=== PATIENT | female | born 1950 | race Caucasian/White ===

== ENCOUNTER → 2024-02-24 17:45 | Outpatient (REF) | payer MEDICARE, OTHER, SELFPAY | LOC: WDC 17:45 | PROVIDERS: ATTENDING PHYSICIAN Nurse Practitioner Primary Care | DX: Z12.31 Encounter for screening mammogram for malignant neoplasm of breast (principal) | CPT/HCPCS: 77063; 77067 ==

== ENCOUNTER 2024-05-22 09:40 | Emergency (ER) | payer MEDICARE, OTHER, SELFPAY ==
[2024-05-22 09:42] VITALS: BP 190/100
--- NOTE | 2024-05-22 09:59 | ED.GENMED ---
History of Present Illness
General
Chief Complaint: Urinary Symptoms
Source: patient
Time Seen by Provider: 05/22/24 09:45
History of Present Illness
History of Present Illness:
74yoF with a history of hypertension, hyperlipidemia, and kidney stones presenting with her for evaluation of hematuria. Symptoms began yesterday morning. Urine appears dark red. She denies passing any clots. She denies any difficulty
urinating, urinary retention, or dysuria. Patient denies any abdominal pain, flank pain, fevers, vomiting. Of note, patient had a headache and chills about 4 days ago which have resolved. She does not take any blood thinners.
Past History
Past History
ED Past Medical History: HTN and Other (Herniarted disc)
ED Past Surgical History: Appendectomy, Cholecystectomy and Gynecological (Tubel)
Social History
Tobacco: Non-smoker
Alcohol: Occasional
Personal:
Living: with family
Phy Exam
General Physical Exam
General Presentation: well appearing and no apparent distress
General age: appears stated age
General Skin: warm and dry
General Habitus: normal
General Mental: alert
General Hydration: appears well hydrated
Cardiovascular Exam
Cardiovascular Exam: regular rate/rhythm
Pulmonary Exam
Pulmonary Exam: lungs clear, no respiratory distress, no crackles and no wheezing
Gastrointestinal Exam
Gastrointestinal Exam: non tender, soft, non distended and no cva tenderness
Skin Exam
Skin Exam: normal color and warm/dry
Psychiatric Exam
Psychiatric Exam: normal mood/affect
Course
Orders/Labs/Results
Orders:
Orders
05/22/24 09:59
CT Abd/pelvis W Iv Cont Urgent
Comment:
Reason For Exam: Hematuria
05/22/24 10:37
Complete Blood Count/With Diff Urgent
Comprehensive Metabolic Panel Urgent
PTT Urgent
Prothrombin Time Urgent
Urinalysis Reflex To Culture Urgent
Date Specimen was Collected: 05/22/24
Time Specimen was Collected: 10:32
Urine Microscopic Reflex Cult Urgent
Urine Culture Urgent
FERNANDO Source: U
Specimen Description:
Date Specimen was Collected: 05/22/24
Time Specimen was Collected: 10:32
Abnormal Lab Results
05/22/24
10:37
RBC 3.82 L 10^6/uL
(4.20-5.40)
Hgb 11.0 L g/dL
(12.0-16.0)
Hct 33.2 L %
(37.0-47.0)
Absolute Monos (auto) 1.3 H 10^3/uL
(0.1-0.6)
Monocytes % 12.5 H %
(1.7-9.3)
Carbon Dioxide 32 H mmol/L
(22-30)
BUN 29 H mg/dl
(7-17)
Ur Occult Blood Reflex 4+ A
(Negative)
Urine Nitrite (Reflex) Positive A
(Negative)
Leukocyte Esterase Rfl 2+ A
(Negative)
Urine RBC 50-60 A /HPF
(0-2)
Urine WBC (Reflex) 70-80 A /HPF
(0-5)
Urine Bacteria (Reflex) Moderate A
(Negative)
Urine Albumin (Reflex) 3+ A
(Neg - Trace)
05/22/24 10:37
05/22/24 10:37
Vital Signs
Initial and Last Documented VS:
Initial Vital Signs
Temp Pulse Resp BP Pulse Ox
98.2 F 88 16 190/100 98
05/22/24 09:42 05/22/24 09:42 05/22/24 09:42 05/22/24 09:42 05/22/24 09:42
Last Documented Vital Signs
Temp Pulse Resp BP Pulse Ox
98.2 F 89 18 119/54 98
05/22/24 09:42 05/22/24 12:05 05/22/24 12:05 05/22/24 12:05 05/22/24 12:05
MDM/Problems Addressed
Differential Diagnosis Includes:
74yoF here with gross hematuria x 1 day. Otherwise asymptomatic. Not on anticoagulation. She is hypertensive with otherwise normal vital signs. She is well-appearing no acute distress. No abdominal or CVA tenderness present. Differential
diagnosis includes but is not limited to: Cystitis, kidney stone, malignancy
Initial ED plan: Check CBC, CMP, coags, UA, and CT abdomen.
*Critical Care Note
Total Time (30-74mins, 75-104mins- exclusive of procedures): Not Applicable
Update Note
Update Note:
Creatinine is normal. UA is nitrite positive with 70-80 WBC and moderate bacteria. CT shows intrarenal stones as well as a bubble of air within the urinary bladder. Clinical presentation consistent with hemorrhagic cystitis. She was started on a
course of cefdinir. Advised f/u with urology. ED return precautions discussed. She expressed understanding and is agreeable to plan. Patient discharged in stable condition.
ED Attending Note
-
Portions of this chart may have been created with voice recognition software.� Occasional wrong word or��sound alike� substitutions may have occurred due to the inherent limitations of voice recognition software.
Discharge Plan
Departure
Patient Disposition: Home (Routine Discharge)
Date of Disposition: 05/22/24
Time of Disposition: 12:52
Patient with high blood pressure during this ER visit?: No
Discharge Problem:
Acute hemorrhagic cystitis
Instructions: Urinary Tract Infection, Adult (DC)
Prescriptions:
New
cefdinir 300 mg capsule
300 mg PO BID Qty: 14 0RF
No Action
sennosides [senna] 1 TABLET tablet
2 tab PO HS Qty: 1 0RF
polyethylene glycol 3350 17 GRAMS powder in packet
17 grams feeding tube DAILY Qty: 1 0RF
Referrals:
Aziza Moody CRNP [Family Provider] -
Aj Joshi MD [Active] -
Activity Restrictions/Additional Instructions:
Take antibiotics as prescribed.
Please follow-up with urology. Return to the ER with any worsening symptoms, inability to urinate, or fevers.
Interventions
Interventions:
*Risk Screen - Suicide Last Done: 05/22/24 12:08
*General Assessment Last Done: 05/22/24 12:06
*Neglect/Abuse Screening Last Done: 05/22/24 12:08
Discharge Date and Time
Print Language: FRENCH
[2024-05-22 10:30] VITALS: BMI 28.7
[2024-05-22 10:48] LABS: % Basophils 0.5 % (0-2); % Immature Granulocytes 0.3 % (0-0.5); % Lymphocytes 20.9 % (20.5-51.1); % Monocytes 12.5 % (1.7-9.3); % Neutrophils 63.8 % (42.2-75.2); Absolute Basophils 0.1 10^3/uL (0-0.2); Absolute Eosinophils 0.2 10^3/uL (0-0.7); Absolute Lymphocytes 2.1 10^3/uL (1.2-3.4); Absolute Monocytes 1.3 10^3/uL (0.1-0.6); Absolute Neutrophils 6.5 10^3/uL (1.4-6.5); Hematocrit 33.2 % (37.0-47.0); Mean Corp Hgb Conc. 33.1 g/dL (33.0-37.0); Mean Corpuscular Hgb 28.8 pg (27.0-31.0); Mean Corpuscular Volume 86.9 fL (81.0-99.0); Mean Platelet Volume 9.6 fL (7.4-10.4); Nucleated Red Blood Cells % 0 %; Platelet Count 305 10^3/uL (130-400); Red Blood Cell Count 3.82 10^6/uL (4.20-5.40); Red Cell Dist. Width 13.2 % (11.5-14.5); White Blood Cell Count 10.1 10^3/uL (4.8-10.8)
[2024-05-22 10:55] LABS: Urine Albumin 3+ (Neg - Trace); Urine Bilirubin Negative (Negative); Urine Character Slightly Cloudy (Clear); Urine Color Brown; Urine Glucose Negative (Negative); Urine Ketone Negative (Negative); Urine Leukocyte 2+ (Negative); Urine Nitrite Positive (Negative); Urine Occult Blood 4+ (Negative); Urine Urobilinogen Negative (Neg - 1+)
[2024-05-22 11:04] LABS: INR 1.07; PT 13.7 Sec (11.4-14.6)
[2024-05-22 11:05] LABS: ALT (SGPT) 17 U/L (0-35); APTT 30.5 Sec (23.4-35.0); AST (SGOT) 22 U/L (14-36); Albumin 3.7 g/dl (3.5-5.0); Alkaline Phosphatase 93 U/L (38-126); Blood Urea Nitrogen 29 mg/dl (7-17); Calcium 8.8 mg/dl (8.4-10.2); Carbon Dioxide 32 mmol/L (22-30); Chloride 103 mmol/L (98-107); Estimated Creatinine Clearance 61 ml/min; Glucose 98 mg/dl (70-99); Potassium 3.9 mmol/L (3.5-5.1); Sodium 144 mmol/L (135-145); Total Bilirubin 0.4 mg/dl (0.2-1.3); Total Protein 6.6 g/dl (6.3-8.2); eGFR > 60.00
[2024-05-22 12:05] VITALS: BP 119/54
[2024-05-22 12:37] LABS: Urine Squamous Cell 16-20 /LPF (Few)
[2024-05-22 12:38] LABS: Urine Bacteria Moderate (Negative); Urine Red Blood Cell 50-60 /HPF (0-2); Urine White Cell 70-80 /HPF (0-5)
== END 2024-05-22 12:55 | disposition home or self-care (01) ==
LOC: EMR 09:40
PROVIDERS: Physician Assistant; EMERGENCY PHYSICIAN Emergency Medicine; FAMILY PHYSICIAN Nurse Practitioner Primary Care
DX: N30.01 Acute cystitis with hematuria (principal); I10 Essential (primary) hypertension; Z87.442 Personal history of urinary calculi; E78.5 Hyperlipidemia, unspecified
CPT/HCPCS: 99285; 74177; 80053; 81003; 81015; 85025; 85610; 85730; 87077; 87086; 87186; Q9967

== ENCOUNTER → 2024-06-20 10:46 | Outpatient (REF) | payer MEDICARE, OTHER, SELFPAY ==
[2024-06-20 12:12] LABS: Urine Albumin Negative (Neg - Trace); Urine Bilirubin Negative (Negative); Urine Character Clear (Clear); Urine Color Yellow; Urine Glucose Negative (Negative); Urine Ketone Negative (Negative); Urine Leukocyte 2+ (Negative); Urine Nitrite Negative (Negative); Urine Occult Blood 3+ (Negative); Urine Specific Gravity 1.025 (<1.030); Urine Urobilinogen Negative (Neg - 1+)
[2024-06-20 12:31] LABS: Urine Hyaline Cast 0-2 /LPF (0-2); Urine Squamous Cell >30 /LPF (Few)
[2024-06-20 12:33] LABS: Urine Bacteria Moderate (Negative); Urine Mucus Moderate; Urine Red Blood Cell 30-40 /HPF (0-2); Urine White Cell 60-70 /HPF (0-5)
== END ==
LOC: REG 10:46
PROVIDERS: ATTENDING PHYSICIAN Nurse Practitioner Primary Care; FAMILY PHYSICIAN Specialist
DX: R31.29 Other microscopic hematuria (principal)
CPT/HCPCS: 81003; 81015; 87086

== ENCOUNTER → 2024-07-07 10:19 | Outpatient (REF) | payer MEDICARE, OTHER, SELFPAY | LOC: RAD 10:19 | PROVIDERS: ATTENDING PHYSICIAN Specialist; FAMILY PHYSICIAN Nurse Practitioner Primary Care | DX: N20.0 Calculus of kidney (principal) | CPT/HCPCS: 74018 ==

== ENCOUNTER → 2024-08-10 07:42 | Outpatient (REF) | payer MEDICARE, OTHER, SELFPAY | LOC: SDSPAT 07:42 | PROVIDERS: ATTENDING PHYSICIAN Specialist; FAMILY PHYSICIAN Nurse Practitioner Primary Care | DX: N20.0 Calculus of kidney (principal) | CPT/HCPCS: 36415; 93005 ==

== ENCOUNTER 2024-08-17 06:19 | Day surgery (SDC) | payer MEDICARE, OTHER, SELFPAY ==
[2024-08-10 09:37] VITALS: BMI 28.1
[2024-08-17] VITALS (9 sets, daily range): BP systolic 82–124; BP diastolic 44–74; BMI 28.1
[2024-08-22 09:46] LABS: Stone Analysis Mass 12 mg
== END 2024-08-17 12:19 | disposition home or self-care (01) ==
LOC: SDS 06:19
PROVIDERS: ATTENDING PHYSICIAN Specialist
DX: N20.0 Calculus of kidney (principal); N30.90 Cystitis, unspecified without hematuria
CPT/HCPCS: 52356; 74018; 76000; 82365; 87086; C1894; C2617

== ENCOUNTER → 2024-09-01 10:40 | Outpatient (REF) | payer MEDICARE, OTHER, SELFPAY | LOC: REG 10:40 | PROVIDERS: ATTENDING PHYSICIAN Specialist; FAMILY PHYSICIAN Nurse Practitioner Primary Care | DX: N20.0 Calculus of kidney (principal); N30.01 Acute cystitis with hematuria | CPT/HCPCS: 74018 ==

== ENCOUNTER → 2024-12-08 08:57 | Outpatient (REF) | payer MEDICARE, OTHER, SELFPAY | LOC: RAD 08:57 | PROVIDERS: ATTENDING PHYSICIAN Specialist; FAMILY PHYSICIAN Nurse Practitioner Primary Care | DX: N20.0 Calculus of kidney (principal) | CPT/HCPCS: 74018 ==

== ENCOUNTER → 2025-05-18 13:09 | Outpatient (REF) | payer MEDICARE, OTHER, SELFPAY | LOC: HWRAD 13:09 | PROVIDERS: ATTENDING PHYSICIAN Specialist; FAMILY PHYSICIAN Nurse Practitioner Primary Care | DX: N20.0 Calculus of kidney (principal) | CPT/HCPCS: 74176 ==

== ENCOUNTER → 2025-05-31 14:28 | Outpatient (REF) | payer MEDICARE, OTHER, SELFPAY | LOC: RCS 14:28 | PROVIDERS: ATTENDING PHYSICIAN Nurse Practitioner Primary Care | DX: I10 Essential (primary) hypertension (principal) | CPT/HCPCS: 93306 ==

== ENCOUNTER 2025-06-07 17:44 | Inpatient (IN) | payer MEDICARE, OTHER, SELFPAY ==
[2025-06-07 13:00] VITALS: BP 103/69
[2025-06-07 13:09] LABS: Hematocrit 32.6 % (37.0-47.0); Hemoglobin 10.9 g/dL (12.0-16.0); Mean Corp Hgb Conc. 33.4 g/dL (33.0-37.0); Mean Corpuscular Volume 83.6 fL (81.0-99.0); Nucleated Red Blood Cells % 0 %; Platelet Count 426 10^3/uL (130-400); Red Cell Dist. Width 15.1 % (11.5-14.5)
[2025-06-07 13:37] LABS: ALT (SGPT) 44 U/L (0-35); AST (SGOT) 33 U/L (14-36); Albumin 4.1 g/dl (3.5-5.0); Alkaline Phosphatase 105 U/L (38-126); Blood Urea Nitrogen 65 mg/dl (7-17); Calcium 9.2 mg/dl (8.4-10.2); Carbon Dioxide 25 mmol/L (22-30); Chloride 103 mmol/L (98-107); Glucose 114 mg/dl (70-99); Potassium 3.8 mmol/L (3.5-5.1); Sodium 139 mmol/L (135-145); Total Protein 8.1 g/dl (6.3-8.2); eGFR 29.38
[2025-06-07 14:01] VITALS: BMI 25.9
[2025-06-07 14:04] VITALS: BP 106/61
--- NOTE | 2025-06-07 14:33 | ED.GENMED ---
History of Present Illness
<Sharlene Hancock PA-C - Last Filed: 06/07/25 21:06>
General
Chief Complaint: Dizziness
Source: patient
Exam Limitations: none
Time Seen by Provider: 06/07/25 14:05
History of Present Illness
History of Present Illness:
75yoF with a history of hypertension, hyperlipidemia, kidney stones, and GERD presenting for evaluation of malaise. Symptoms initially started about 9 days ago. She had headache for the first 2 days and was sleeping more than usual. Her headache
has since resolved and she has not had a headache in the past week. She also reports intermittent chills, vomiting, and diarrhea. She is having trouble tolerating p.o. intake due to her vomiting. Patient initially thought she had COVID but took a
home COVID test which was negative. She had 1 bowel movement this morning which was more solid. She reports feeling disoriented throughout the week and states it takes her a while to formulate her thoughts. She is also having shuffling gait and
dizziness with standing. Her urine was dark today. She denies any rashes, abdominal pain, dysuria, chest pain, shortness of breath. No recent travel, tick bites, or sick contacts.
Past History
<Sharlene Hancock PA-C - Last Filed: 06/07/25 21:06>
Past History
ED Past Medical History: HTN and Other (Herniarted disc)
ED Past Surgical History: Appendectomy, Cholecystectomy and Gynecological (Tubel)
Social History
Tobacco: Non-smoker
Alcohol: Occasional
Personal:
Living: with family
Phy Exam
<Sharlene Hancock PA-C - Last Filed: 06/07/25 21:06>
General Physical Exam
General Presentation: well appearing and no apparent distress
General Skin: warm and dry
General Habitus: normal
General Mental: alert
ENT Exam
ENT Exam: neck supple and normocephalic
Additional ENT: No meningismus
Eye Exam
Eye Exam: PERRL and conjunctiva normal
Cardiovascular Exam
Cardiovascular Exam: regular rate/rhythm and no edema
Pulmonary Exam
Pulmonary Exam: lungs clear, no respiratory distress, no rales, no crackles, no rhonchi and no wheezing
Gastrointestinal Exam
Gastrointestinal Exam: non tender, soft and non distended
Neurological Exam
Neurological Exam: alert
Oriska Coma Scale
Eye Opening: Spontaneous
Verbal Response: Oriented
Motor Response: Obeys Commands
GCS Total Score: 15
Skin Exam
Skin Exam: normal color and warm/dry
Psychiatric Exam
Psychiatric Exam: normal mood/affect
<Alfredo Tolentino MD - Last Filed: 06/07/25 17:13>
Oriska Coma Scale
GCS Total Score: 15
Course
<Sharlene Hancock PA-C - Last Filed: 06/07/25 21:06>
Orders/Labs/Results
Orders:
Orders
06/07/25 13:03
Complete Blood Count/With Diff Urgent
Comprehensive Metabolic Panel Urgent
06/07/25 14:32
0.9% Sodium Chloride 1000 ml [Nss] 1,000 ml IV BOLUS
06/07/25 14:33
CT Head W/o Iv Contrast Urgent
Comment:
Reason For Exam: dizziness
CR Chest - 2 Views Urgent
Comment:
Reason For Exam: chills
06/07/25 14:36
Electrocardiogram (*1) Urgent
Reason for Study: Vertigo / Dizzy
EKG- Treatment ONCE
06/07/25 14:43
COVID-19 Antigen Urgent
Source: Nasal Swab
Lactate Level [Lactic Acid] Urgent
Blood Culture Q30M
FERNANDO Source: Blood/Venous
Specimen Description:
Influenza A+B Rapid Molecular Urgent
FERNANDO Source: Nasal Swab
Specimen Description:
06/07/25 Dinner
Cholesterol Lowering
At Your Request: Limited Participation
Does patient need a safe tray?: No
Cholesterol Lowering: Sodium, 2 Gram
06/07/25 16:00
Urinalysis Reflex To Culture Urgent
Date Specimen was Collected: 06/07/25
Time Specimen was Collected: 15:03
Urine Microscopic Reflex Cult Urgent
Urine Culture Urgent
FERNANDO Source: U
Specimen Description:
Date Specimen was Collected: 06/07/25
Time Specimen was Collected: 15:03
06/07/25 16:13
Troponin I Urgent
Blood Culture Q30M
FERNANDO Source: Blood/Venous
Specimen Description:
06/07/25 16:25
CefTRIAXone [Rocephin] 2,000 mg IV NOW STA
06/07/25 16:51
CefTRIAXone [Rocephin] 1,000 mg IV NOW STA
06/07/25 17:08
Admit/Transfer Patient As Directed
Co-Sign Provider:
Level of Care: Inpatient admission
Assign to:: Medical/Surgical
Physician / Group: Geo Malik
Diagnosis: sepsis, UTI, EDDIE
Reason for Hospitalization: sepsis, UTI, EDDIE
Expected length of stay greater than two midnights?: Yes
ELOS- Estimated Length of Stay in days: 3
I certify the patient meets the requirements for IP care: Yes
06/07/25 17:09
PRN Pain Medication Management As Directed
May give lesser potent ordered pain med per pt: Yes
preference::
Protocol:: Medication orders for pain may be administered in a
manner that supports deferring to patient preference
when the pt is:
- Requesting an ordered lesser potent pain medication.
Least to most potent pain medications are defined
as: acetaminophen < NSAID < tramadol < opioids
(morphine, oxycodone, hydromorphone).
- Requesting a lesser dose of the same medication IF
ORDERED.
- Requesting a less intrusive route of administration
if both routes are prescribed by the provider (PO <
IV).
06/07/25 17:10
Code Status As Directed
Resuscitation Status: Full Code
06/07/25 18:22
0.9% Sodium Chloride 1000 ml [Nss] 1,000 ml IV 100 mls/hr
Acetaminophen [Tylenol] 650 mg PO Q4HPRN PRN
06/07/25 18:22
Activity As Directed
Activity Level: As Tolerated
Vital Signs As Directed
Frequency: Per unit guidelines
Weight As Directed
Frequency: Once
Comment: on admission
DX Deep Vein Thrombosis Video Routine
06/08/25 00:00
Heparin 5,000 units SC Q8
06/08/25 06:00
Basic Metabolic Panel IN AM
Complete Blood Count/No Diff IN AM
06/08/25 08:00
Pantoprazole [Protonix] 40 mg PO DAILY
06/08/25 18:00
CefTRIAXone [Rocephin] 1,000 mg IV Q24H
Abnormal Lab Results
06/07/25 06/07/25
13:03 16:00
WBC 19.3 H 10^3/uL
(4.8-10.8)
RBC 3.90 L 10^6/uL
(4.20-5.40)
Hgb 10.9 L g/dL
(12.0-16.0)
Hct 32.6 L %
(37.0-47.0)
RDW 15.1 H %
(11.5-14.5)
Plt Count 426 H 10^3/uL
(130-400)
Abs Immat Gran (auto) 0.2 H 10^3/uL
(0-0.05)
Absolute Neuts (auto) 15.2 H 10^3/uL
(1.4-6.5)
Absolute Monos (auto) 2.3 H 10^3/uL
(0.1-0.6)
Immature Gran % 0.8 H %
(0-0.5)
Neutrophils % 78.8 H %
(42.2-75.2)
Lymphocytes % 7.8 L %
(20.5-51.1)
Monocytes % 12.1 H %
(1.7-9.3)
BUN 65 H mg/dl
(7-17)
Creatinine 1.8 H mg/dL
(0.6-1.0)
Glucose 114 H mg/dl
(70-99)
ALT 44 H U/L
(0-35)
Ur Occult Blood Reflex 4+ A
(Negative)
Leukocyte Esterase Rfl 3+ A
(Negative)
Urine RBC 3-6 A /HPF
(0-2)
Urine WBC (Reflex) 80-90 A /HPF
(0-5)
Urine Bacteria (Reflex) Many A
(Negative)
Urine Albumin (Reflex) 2+ A
(Neg - Trace)
06/07/25 13:03
06/07/25 13:03
Vital Signs
Initial and Last Documented VS:
Initial Vital Signs
Temp Pulse Resp BP Pulse Ox
98.5 F 104 16 103/69 99
06/07/25 13:00 06/07/25 13:00 06/07/25 13:00 06/07/25 13:00 06/07/25 13:00
Last Documented Vital Signs
Temp Pulse Resp BP Pulse Ox
98.5 F 96 16 101/66 96
06/07/25 18:40 06/07/25 18:40 06/07/25 18:40 06/07/25 18:40 06/07/25 18:40
<Alfredo Tolentino MD - Last Filed: 06/07/25 17:13>
Orders/Labs/Results
Orders:
Orders
06/07/25 13:03
Complete Blood Count/With Diff Urgent
Comprehensive Metabolic Panel Urgent
06/07/25 14:32
0.9% Sodium Chloride 1000 ml [Nss] 1,000 ml IV BOLUS
06/07/25 14:33
CT Head W/o Iv Contrast Urgent
Comment:
Reason For Exam: dizziness
CR Chest - 2 Views Urgent
Comment:
Reason For Exam: chills
06/07/25 14:36
Electrocardiogram (*1) Urgent
Reason for Study: Vertigo / Dizzy
EKG- Treatment ONCE
06/07/25 14:43
COVID-19 Antigen Urgent
Source: Nasal Swab
Lactate Level [Lactic Acid] Urgent
Blood Culture Q30M
FERNANDO Source: Blood/Venous
Specimen Description:
Influenza A+B Rapid Molecular Urgent
FERNANDO Source: Nasal Swab
Specimen Description:
06/07/25 Dinner
Cholesterol Lowering
At Your Request: Limited Participation
Does patient need a safe tray?: No
Cholesterol Lowering: Sodium, 2 Gram
06/07/25 16:00
Urinalysis Reflex To Culture Urgent
Date Specimen was Collected: 06/07/25
Time Specimen was Collected: 15:03
Urine Microscopic Reflex Cult Urgent
Urine Culture Urgent
FERNANDO Source: U
Specimen Description:
Date Specimen was Collected: 06/07/25
Time Specimen was Collected: 15:03
06/07/25 16:13
Troponin I Urgent
Blood Culture Q30M
FERNANDO Source: Blood/Venous
Specimen Description:
06/07/25 16:25
CefTRIAXone [Rocephin] 2,000 mg IV NOW STA
06/07/25 16:51
CefTRIAXone [Rocephin] 1,000 mg IV NOW STA
06/07/25 17:08
Admit/Transfer Patient As Directed
Co-Sign Provider:
Level of Care: Inpatient admission
Assign to:: Medical/Surgical
Physician / Group: Geo Malik
Diagnosis: sepsis, UTI, EDDIE
Reason for Hospitalization: sepsis, UTI, EDDIE
Expected length of stay greater than two midnights?: Yes
ELOS- Estimated Length of Stay in days: 3
I certify the patient meets the requirements for IP care: Yes
06/07/25 17:09
PRN Pain Medication Management As Directed
May give lesser potent ordered pain med per pt: Yes
preference::
Protocol:: Medication orders for pain may be administered in a
manner that supports deferring to patient preference
when the pt is:
- Requesting an ordered lesser potent pain medication.
Least to most potent pain medications are defined
as: acetaminophen < NSAID < tramadol < opioids
(morphine, oxycodone, hydromorphone).
- Requesting a lesser dose of the same medication IF
ORDERED.
- Requesting a less intrusive route of administration
if both routes are prescribed by the provider (PO <
IV).
06/07/25 17:10
Code Status As Directed
Resuscitation Status: Full Code
06/07/25 18:22
0.9% Sodium Chloride 1000 ml [Nss] 1,000 ml IV 100 mls/hr
Acetaminophen [Tylenol] 650 mg PO Q4HPRN PRN
06/07/25 18:22
Activity As Directed
Activity Level: As Tolerated
Vital Signs As Directed
Frequency: Per unit guidelines
Weight As Directed
Frequency: Once
Comment: on admission
DX Deep Vein Thrombosis Video Routine
06/08/25 00:00
Heparin 5,000 units SC Q8
06/08/25 06:00
Basic Metabolic Panel IN AM
Complete Blood Count/No Diff IN AM
06/08/25 08:00
Pantoprazole [Protonix] 40 mg PO DAILY
06/08/25 18:00
CefTRIAXone [Rocephin] 1,000 mg IV Q24H
Abnormal Lab Results
06/07/25 06/07/25
13:03 16:00
WBC 19.3 H 10^3/uL
(4.8-10.8)
RBC 3.90 L 10^6/uL
(4.20-5.40)
Hgb 10.9 L g/dL
(12.0-16.0)
Hct 32.6 L %
(37.0-47.0)
RDW 15.1 H %
(11.5-14.5)
Plt Count 426 H 10^3/uL
(130-400)
Abs Immat Gran (auto) 0.2 H 10^3/uL
(0-0.05)
Absolute Neuts (auto) 15.2 H 10^3/uL
(1.4-6.5)
Absolute Monos (auto) 2.3 H 10^3/uL
(0.1-0.6)
Immature Gran % 0.8 H %
(0-0.5)
Neutrophils % 78.8 H %
(42.2-75.2)
Lymphocytes % 7.8 L %
(20.5-51.1)
Monocytes % 12.1 H %
(1.7-9.3)
BUN 65 H mg/dl
(7-17)
Creatinine 1.8 H mg/dL
(0.6-1.0)
Glucose 114 H mg/dl
(70-99)
ALT 44 H U/L
(0-35)
Ur Occult Blood Reflex 4+ A
(Negative)
Leukocyte Esterase Rfl 3+ A
(Negative)
Urine RBC 3-6 A /HPF
(0-2)
Urine WBC (Reflex) 80-90 A /HPF
(0-5)
Urine Bacteria (Reflex) Many A
(Negative)
Urine Albumin (Reflex) 2+ A
(Neg - Trace)
06/07/25 13:03
06/07/25 13:03
Vital Signs
Initial and Last Documented VS:
Initial Vital Signs
Temp Pulse Resp BP Pulse Ox
98.5 F 104 16 103/69 99
06/07/25 13:00 06/07/25 13:00 06/07/25 13:00 06/07/25 13:00 06/07/25 13:00
Last Documented Vital Signs
Temp Pulse Resp BP Pulse Ox
98.5 F 96 16 101/66 96
06/07/25 18:40 06/07/25 18:40 06/07/25 18:40 06/07/25 18:40 06/07/25 18:40
<Sharlene Hancock PA-C - Last Filed: 06/07/25 21:06>
MDM/Problems Addressed
Differential Diagnosis Includes:
75yoF here with malaise x 9 days. C/o vomiting, diarrhea, fatigue, and word finding difficulty. No fevers. HR 104 in triage. Remainder of vitals are normal. She is well appearing in no distress. Abdominal exam is benign. Differential diagnosis
includes but is not limited to: Viral illness, gastroenteritis, dehydration, consider CVA
Initial ED plan: Workup initiated in triage. Leukocytosis noted with a white count of 19.3. Creatinine is 1.8, up from baseline of 0.8. Will check lactate, blood cultures, troponin/EKG, UA, COVID/flu swab, chest x-ray, and CT head. IV fluid
bolus.
<Sharlene Hancock PA-C - Last Filed: 06/07/25 21:06>
*Pulse Oximetry
SaO2: 95
Oxygen Mode of Delivery: Room air
Patient hypoxic: no (99%)
*EKG
Interpreted by ED Provider?: Yes
EKG Intrepretation Date: 06/07/25
Heart Rate: 85
Rate: normal
Rhythm: sinus
Mcbee: normal axis
Interval: normal interval
QRS Pattern: normal QRS
Ischemia: no ischemia
*Critical Care Note
Total Time (30-74mins, 75-104mins- exclusive of procedures): Not Applicable
<Sharlene Hancock PA-C - Last Filed: 06/07/25 21:06>
Update Note
Update Note:
Lactate normal. Viral testing negative. UA with 80-90 WBCs and many bacteria suggesting UTI. Chest x-ray clear and CT head negative for acute findings. IV Rocephin ordered and patient admitted for further management.
ED Attending Note
<Sharlene Hancock PA-C - Last Filed: 06/07/25 21:06>
-
Portions of this chart may have been created with voice recognition software.� Occasional wrong word or��sound alike� substitutions may have occurred due to the inherent limitations of voice recognition software.
<Alfredo Tolentino MD - Last Filed: 06/07/25 17:13>
ED Attending Note
Patient seen and examined by attending physician: Yes
I performed the substantive portion of visit, reviewed & personally made and approve the management plan that is documented in note by myself or ALVINA.: Yes
ED Attending Note:
Patient has had 2 weeks of headaches some nausea or vomiting. Did notice recent disequilibrium. Also at times trouble with her words. Some shaking chills at home. No chest pain shortness of breath or cough.
On exam patient is nontoxic in no distress. Speech is normal however she at times has trouble finding the right word. Cranial nerves II through XII intact otherwise. No drift. Upper extremity strength normal. Lower extremity strength normal.
Warm and dry. Perfusing well. Lungs clear and equal. Abdomen benign.
Labs show a significant leukocytosis, prerenal acidemia and UTI. Will be treated for all of these issues. To consider small CVA with symptoms although this is an nonacute issue.
Discharge Plan
Departure
Patient Disposition: Admit
Date of Disposition: 06/07/25
Time of Disposition: 16:47
Presentation/result/management discussed w/ accepting MD/DO: Hospitalist
Discharge Problem:
Acute kidney injury, Urinary tract infection
Interventions
Interventions:
*Risk Screen - Suicide Last Done: 06/07/25 18:43
*General Assessment Last Done: 06/07/25 14:02
*Neglect/Abuse Screening Last Done: 06/07/25 13:02
*ED- Fall Risk Assessment Last Done: 06/07/25 14:02
*ED COVID-19 Vaccine History Last Done: 06/07/25 14:02
*Nursing Disposition Last Done: 06/07/25 18:18
ED- Cardiac Assessment Last Done: 06/07/25 14:04
ED- Neurological Assessment Last Done: 06/07/25 14:04
ED Swallowing Screen Last Done: 06/07/25 16:16
Discharge Date and Time
Discharge Date/Time: 06/07/25 18:19
[2025-06-07] MEDS: NSS 1000 IV ×2 (14:46→18:33)
[2025-06-07 15:00] VITALS: BP 106/61
[2025-06-07 15:23] LABS: COVID-19 Antigen Negative (Negative)
[2025-06-07 16:12] LABS: Urine Character Clear (Clear)
[2025-06-07 16:24] LABS: Urine White Cell 80-90 /HPF (0-5)
--- NOTE | 2025-06-07 16:49 | HPS.HSE ---
Family Physician
-
Family Physician: Aziza Moody
Chief Complaint
-
Generalized weakness
History of Present Illness
75-year-old female with history of hypertension, dyslipidemia, kidney stone, osteoarthritis presented to the hospital for evaluation of generalized weakness and malaise and unsteady gait and dizziness specially when he tried to stand up, story goes
back to of Day when he was in a gathering and few days later started developing an headache and generalized body ache, malaise, poor appetite, GERD symptom followed by couple episodes of vomiting and nonbloody diarrhea, admits she was
not able to eat or drink anything and she had a metallic taste in her mouth, denies any fever or chill or any cough or congestion or any weakness or numbness in extremities, and at any time last couple days trying to get up she was very unsteady on
her feet and feels dizzy. Denies any antibiotic intake.-No more diarrhea since yesterday.
But overall still not able to eat or drink much. Her headaches are involved. She tested negative for COVID according to the patient.
Admit the urine is foul-smelling and dark but no dysuria or urgency.
Looks dry and dehydrated, workup in the ER concerning for dehydration, low normal blood pressure and acute kidney injury and UTI.
Complaining of chronic pain in numbness in the both leg below knee specially at night and charley horses.
Medical History
Past Medical History
Past Medical History: Reports Other
Additional Past Medical History:
Past medical history:
Hypertension
Lipidemia
Kidney stone
Osteoarthritis
GERD
COVID
Surgical history:
Tubal ligation
Cholecystectomy
Cataract surgery in the right eye
Hemorrhoid banding
Cystoscopy and ureteric stent and stone removal.
Social history: Lives alone, recently retired, denies smoking and occasionally drinks alcohol and she is independent and no drug use.
Family history reviewed and noncontributory
Past Surgical History: Reports Other
Social History
Unable to obtain full social history at this time due to: Other
Family History
Family History: Other
Allergies / Home Medications
Allergies reflects when Allergies were last updated in [facility].
Home Medications with original date entered in [facility]
Allergy/Medication List:
Allergies
Allergy/AdvReac Type Severity Reaction Status Date / Time
No Known Allergies Allergy Verified 08/11/24 11:24
Home Medications
atorvastatin 20 mg tablet 20 mg PO DAILY 08/11/24
olmesartan 20 mg-hydrochlorothiazide 12.5 mg tablet 1 tab PO DAILY 08/11/24
omeprazole 20 mg tablet,delayed release 20 mg PO DAILY 08/11/24
Review of Systems
-
A 12 point ROS was completed and negative except as noted: Yes
Physical Exam
Vital Signs
Vital Signs
Temp Pulse Resp BP Pulse Ox
98.5 F 84 18 106/61 98
06/07/25 13:00 06/07/25 15:00 06/07/25 15:00 06/07/25 15:00 06/07/25 15:00
Physical exam:
General: Awake, alert and oriented x3, not in distress and holds appropriate conversation.
HEENT: No active discharge, ecchymosis or bruising, dry lips, tongue and mucous membrane.
Eyes: No discharge or red conjunctiva, no nystagmus, pupils are reactive and equal
Neck:Supple, no JVD no bruit no goiter.
Respiratory: Normal AP contour and diameter, normal chest wall movement, normal respiratory effort, no respiratory distress,
Lungs: Good air entry bilaterally, no wheezing or rhonchi, no rales or crackles
Heart: S1, S2 regular, normal rate, no added sound.
Gastrointestinal: Positive bowel sounds, soft, nontender, no guarding or rigidity or organomegaly
Musculoskeletal: , no chest wall abnormality or tenderness. All joints and extremities have good range of motion, no muscle tenderness or any joint swelling or tenderness.
Extremities: No pitting edema, good peripheral pulses, good range of motion
Skin: Warm and dry, no ulceration, normal color.
Neurological: Awake, alert and oriented x3, good muscle tone, cranial nerves II through XII grossly intact, moves extremities freely, speech clear and comprehensive, good muscle tone, normal sensory and motor function
Psychiatric: Normal mood, normal thought and judgment, normal affect,
Physical Exam
General: Other
Laboratory Results
-
06/07/25 13:03
06/07/25 13:03
Laboratory Results
Lactic Acid 1.1 mmol/L (0.7-2.0) 06/07/25 14:43
Total Bilirubin 0.7 mg/dl (0.2-1.3) 06/07/25 13:03
AST 33 U/L (14-36) 06/07/25 13:03
ALT 44 U/L (0-35) H 06/07/25 13:03
Alkaline Phosphatase 105 U/L (38-126) 06/07/25 13:03
Troponin I Cancelled 06/07/25 16:[address]:No acute intracranial abnormalities.
Findings compatible with diffuse cortical atrophy with minor nonspecific white matter changes as described above.
Chest x-ray: Reviewed by me and pending official report, please refer to the official report once available, no acute abnormality.
EKG: Showed normal sinus rhythm rate around 88, UT 152, QT 362 otherwise no acute abnormality
Data Reviewed
-
CT Scan: Image Personally Visualized and interpreted and Discussed with Patient
Medical Tests (Nuc Med, Echo, EKG etc): Image Personally Visualized and interpreted and Discussed with Patient
Lab Data: Labs Reviewed by me and Discussed with Patient
Old Records: Reviewed
Impression/Plan
-
IMPRESSION:
74-year-old female presented with multi complaint including generalized weakness, malaise, unsteady feet, dizziness when she is to describe with nausea and diarrhea for the last few days, concerning for dehydration, gastroenteritis and UTI as well
as workup show acute kidney injury.
Acute sepsis:
- Likely secondary to urinary tract infection Eliquis need to be considered
- Criteria is leukocytosis white cell count more than 18, acute kidney injury, and encephalopathy.
- IV fluid
-Monitor vital sign.
- Blood culture collected.
Generalized weakness: Likely metabolic encephalopathy related to dehydration, UTI, acute kidney injury.
- IV fluid
- Hold blood pressure medication which she is on ARB and HCTZ as pressure in the low normal side
- Recheck lab
- Avoid nephrotoxin
- If not improving consider ultrasound of kidney and nephrology,
Acute kidney injury:
- Likely prerenal because of the dehydration poor oral intake and diarrhea and vomiting.
- IV fluid
- Recheck lab
- Avoid nephrotoxin
Urinary tract infection: Symptomatic
- In the past grew E. coli pansensitive
- Started on Rocephin radha continue can be discussed daily pending culture and sensitivity
GERD:
- Continue PPI
Hypertension:
- Pressure on the soft side we will hold ARB and HCTZ for now with close monitoring of the blood
Chronic bilateral leg pain and numbness:
- Concerning for peripheral neuropathy while other causes need to be considered: Doubt a radiculopathy.
- Recommended to take some magnesium supplements and outpatient like magnesium glycinate will need to address with the primary care physician further workup for peripheral neuropathy or restless leg syndrome
All discussed with the patient in detail expressed
Question answered
CODE STATUS full code
DVT prophylaxis: Heparin subcu
[2025-06-07 16:50] LABS: Troponin I < 0.012 ng/ml
[2025-06-07] MEDS: ROCEPHIN 1000 MG IV (16:55)
--- NOTE | 2025-06-07 18:06 | CM ---
CM reviewed chart and met with pt bedside in ED. Pt lives alone, 2 story [facility], 1STE, first floor half bath, second floor Bedroom and full bath.
Independent in ADLs, personal care and ambulation at baseline, no DME.
Confirms prescription coverage.
No hx VN or SNF.
PCP: Aziza Moody
Pharmacy: [facility]
CM will continue to follow for any discharge planning needs.
--- NOTE | 2025-06-07 18:30 | TRANSFER ---
pt arrived from ED via stretcher accompanied by staff. pt ambulated from stretcher to bed with standby assist. VSS, pt AAOx3. call wilson within reach, POC ongoing.
[2025-06-07 18:40] VITALS: BP 101/66
[2025-06-07 18:42] VITALS: BMI 25.9
[2025-06-07] MEDS: HEPARIN 5000 UNITS SC (23:08)
[2025-06-07 23:28] VITALS: BP 107/56
[2025-06-08] VITALS (10 sets, daily range): BP systolic 94–165; BP diastolic 51–121; PULSE 88; O2SAT 94
[2025-06-08] MEDS: OFIRMEV 100 IV (02:32)
[2025-06-08] MEDS: NSS 1000 IV ×2 (06:11→14:01)
[2025-06-08] MEDS: TYLENOL 650 MG PO ×2 (06:20→17:47)
[2025-06-08] MEDS: HEPARIN 5000 UNITS SC ×3 (08:36→23:14)
[2025-06-08] MEDS: PROTONIX 40 MG PO (08:36)
[2025-06-08 09:17] LABS: Blood Urea Nitrogen 41 mg/dl (7-17); Calcium 8.2 mg/dl (8.4-10.2); Carbon Dioxide 24 mmol/L (22-30); Chloride 108 mmol/L (98-107); Estimated Creatinine Clearance 35 ml/min; Glucose 113 mg/dl (70-99); Potassium 3.1 mmol/L (3.5-5.1); Sodium 138 mmol/L (135-145); eGFR 47.80
[2025-06-08 09:26] LABS: Hematocrit 25.6 % (37.0-47.0); Hemoglobin 8.6 g/dL (12.0-16.0); Mean Corp Hgb Conc. 33.6 g/dL (33.0-37.0); Mean Corpuscular Volume 84.2 fL (81.0-99.0); Platelet Count 329 10^3/uL (130-400); Red Cell Dist. Width 15.1 % (11.5-14.5)
[2025-06-08] MEDS: KCL 270 MEQ IV (10:07)
--- NOTE | 2025-06-08 12:35 | W.PN.HOSP.TC ---
Today's Communication/Plan
-
Check renal bladder ultrasound
Check MRI of the brain
Continue with broad-spectrum antibiotic
Check TSH/cortisol
PT evaluation
Follow-up on the blood culture
Assessment / Plan
Assessment / Plan
74-year-old female presented with multi complaint including generalized weakness, malaise, unsteady feet, dizziness when she is to describe with nausea and diarrhea for the last few days, concerning for dehydration, gastroenteritis and UTI as well
as workup show acute kidney injury.
Sepsis-poa
- Likely secondary to urinary tract infection
- Criteria is leukocytosis white cell count more than 18, acute kidney injury, and encephalopathy-poa
- IV fluid
- Monitor vital sign.
- Blood culture in lab. Urine culture with gram-negative bacilli. Continue with broad-spectrum antibiotic with ceftriaxone.
- Patient with history of renal stone and check renal bladder ultrasound.
Toxic metabolic encephalopathy related to dehydration, UTI, acute kidney injury and rule out CVA
- IV fluid
- Hold blood pressure medication which she is on ARB and HCTZ as pressure in the low normal side
- Recheck lab
- Avoid nephrotoxin
- CT head ordered. Check MRI of the brain.
Acute kidney injury:
- Likely prerenal because of the dehydration poor oral intake and diarrhea and vomiting and urinary tract infection in the setting of taking olmesartan and hydrochlorothiazide
- IV fluid
- Creatinine down trended to 1.2. Check renal bladder ultrasound. Treat infection as above.
- Avoid nephrotoxin
GERD:
- Continue PPI
Hypertension:
- Pressure on the soft side we will hold ARB and HCTZ for now with close monitoring of the blood
CODE STATUS full code
DVT prophylaxis: Heparin subcu
Anticipated Discharge: > 48 hours
Subjective/Interval History
-
Date of Service: June 08, 2025
States remembers bits and pieces of events from yesterday
ReMembers watching football came up on the TV
States she feels like she is rinsing pieces of information from yesterday
Denies any nausea or vomiting or chest pain or shortness of breath or palpitation
Neuro she was endorsed on hospital. Knew it was May. Unable to recall date.
Objective Data
-
Labs:
Laboratory Results
06/08/25
08:38
WBC 20.8 H
Hgb 8.6 L D
Hct 25.6 L
Plt Count 329 D
Sodium 138
Potassium 3.1 L
Chloride 108 H
Carbon Dioxide 24
BUN 41 H
Creatinine 1.2 H
Glucose 113 H
Calcium 8.2 L
Vital Signs:
Vital Signs
Temp Pulse Resp BP Pulse Ox
100.3 F 108 18 104/61 92
06/08/25 07:30 06/08/25 07:30 06/08/25 07:30 06/08/25 07:30 06/08/25 10:59
I&O
06/07/25 06/08/25 06/09/25
06:59 06:59 06:59
Intake Total 480 / 480
Output Total 510 / 510
Balance -30 / -30
Physical Exam
-
General: Well Developed and No Apparent Distress
HEENT: Normocephalic, Atraumatic and Moist Mucous Membranes
Respiratory: Clear to Auscultation
Cardiac: Regular Rhythm and S1/S2; Negative Murmur, Rub or Gallop
GI: Soft, Nontender, Nondistended and Normal Bowel Sounds; Negative Organomegaly
Rectal: Deferred by Provider
Musculoskeletal: No Clubbing, No Cyanosis and No Edema
Skin: Warm; Negative Rash
Neuro: Awake, Alert, Oriented, AO x 3, No Motor Deficits and Nonfocal/Grossly Intact; Negative Tremors, Sedated, Slurred Speech or Facial Droop
Psych: Calm and Confused
Data Reviewed
-
Total Time Spent with Patient (in minutes): 58
[2025-06-08 13:12] LABS: Magnesium 1.9 mg/dl (1.6-2.3)
--- NOTE | 2025-06-08 14:44 | PN.CDI ---
CDI
- -
CDI:
Physician Documentation Request
Admit Date: 06/07/25 17:44
Dear Doctor Ace,
Please review the following and provide your response in the progress notes.
Clinical Indicators:
PN, 06/08
#Sepsis-poa
#...- Likely secondary to urinary tract infection
#...- Criteria is leukocytosis white cell count more than 18,
#...acute kidney injury, and encephalopathy-poa
Please clarify which of the following most accurately describes the status of the patient's infection:
Severe Sepsis with associated organ dysfunction(please documentation)
Sepsis only
Other (please specify
Recognized standard criteria for this condition and other associated definitions:
�Sepsis
-Systemic manifestations of infection, with 2 or more SIRS criteria which include:
-Fever > 100.9��F or hypothermia < 96.8��F
-Leukocytosis WBC > 12,000 or leukopenia, WBC < 4,000, or > 10% bands
-Tachycardia- > 90 beats/minute
-Tachypnea- RR > 20 breaths/minute or PaCO2 < 32mmHg
Source: Merck Manual 2013
-Documentation should include the known or suspected organism, and the underlying infection, such as UTI or pneumonia
�Severe Sepsis
-Sepsis with associated acute organ dysfunction, such as renal or respiratory failure
-Documentation should indicate the association between the sepsis and the organ dysfunction
Use of terms such as suspected, likely, concern for, or probable (associated with a specific diagnosis that is being evaluated, monitored, or treated as if it exists) are acceptable and can be coded in the inpatient setting, when documented at the
time of discharge.
Thank you,
Lindsey Price RN BSN CCDS
CDI Specialist
Please contact via tiger text
Please use your independent medical judgment in providing your response.
[2025-06-08] MEDS: STERILE WATER FOR INJECTION 10 ML IV (17:01)
[2025-06-08] MEDS: ROCEPHIN 1000 MG IV (17:01)
[2025-06-09 03:08] VITALS: BP 98/57
[2025-06-09] MEDS: NSS 1000 IV ×2 (03:34→10:35)
[2025-06-09 07:25] VITALS: BP 108/63
[2025-06-09] MEDS: LIPITOR 20 MG PO (08:22)
[2025-06-09] MEDS: PROTONIX 40 MG PO (08:22)
[2025-06-09] MEDS: HEPARIN 5000 UNITS SC ×2 (08:22→23:08)
[2025-06-09 09:35] LABS: Hematocrit 24.0 % (37.0-47.0); Hemoglobin 7.8 g/dL (12.0-16.0); Mean Corp Hgb Conc. 32.5 g/dL (33.0-37.0); Mean Corpuscular Volume 87.6 fL (81.0-99.0); Nucleated Red Blood Cells % 0 %; Platelet Count 321 10^3/uL (130-400); Red Cell Dist. Width 15.7 % (11.5-14.5)
[2025-06-09 09:54] LABS: Blood Urea Nitrogen 29 mg/dl (7-17); Calcium 8.1 mg/dl (8.4-10.2); Carbon Dioxide 21 mmol/L (22-30); Chloride 111 mmol/L (98-107); Estimated Creatinine Clearance 41 ml/min; Glucose 58 mg/dl (70-99); Potassium 3.7 mmol/L (3.5-5.1); Sodium 140 mmol/L (135-145); eGFR 59.49
[2025-06-09 10:22] LABS: Cortisol, Random 22.6 ug/dl
[2025-06-09] MEDS: TYLENOL 650 MG PO ×2 (10:35→20:21)
[2025-06-09 11:35] VITALS: BP 112/63
[2025-06-09 11:40] LABS: Glycohemoglobin (HgbA1c) 6.1 % (4.0-5.6)
--- NOTE | 2025-06-09 12:08 | W.PN.HOSP.TC ---
Today's Communication/Plan
-
Encourage increase p.o. intake
Monitor off fluids
Continue with IV antibiotics
Monitor blood pressure
PT eval
Assessment / Plan
Assessment / Plan
74-year-old female presented with multi complaint including generalized weakness, malaise, unsteady feet, dizziness when she is to describe with nausea and diarrhea for the last few days, concerning for dehydration, gastroenteritis and UTI as well
as workup show acute kidney injury.
Severe Sepsis-poa
- Likely secondary to urinary tract infection E. coli
- Criteria is leukocytosis white cell count more than 18, acute kidney injury, and encephalopathy-poa
- Monitor off IV fluids.
- Monitor vital sign.
- Blood culture in lab remains negative so far. Urine culture susceptibility result noted. Transition to p.o. antibiotic on discharge.
- Patient with history of renal stone and renal bladder ultrasound with renal stones noted.
Toxic metabolic encephalopathy related to dehydration, UTI, acute kidney injury versus unclear if underlying cognitive impairment
- IV fluid
- Hold blood pressure medication which she is on ARB and HCTZ as pressure in the low normal colton
- Avoid nephrotoxin
- CT head age-related changes noted. Unable to tolerate MRI of the brain and stated she will get it as outpatient.
Acute kidney injury:
- Likely prerenal because of the dehydration poor oral intake and diarrhea and vomiting and urinary tract infection in the setting of taking olmesartan and hydrochlorothiazide
- IV fluid
- Creatinine down trended to 1.2. Check renal bladder ultrasound. Treat infection as above.
- Avoid nephrotoxin
GERD:
- Continue PPI
Primary hypertension
- Pressure on the soft side we will hold ARB and HCTZ for now with close monitoring of the blood
- Midodrine as needed ordered. Blood pressure at 112/63.
History of renal stones
- Continue with prophylactic potassium citrate. Follows with urology as outpatient.
CODE STATUS full code
DVT prophylaxis: Heparin subcu
PT recs home PT versus skilled rehab
Anticipated Discharge: 24 - 48 hours
Subjective/Interval History
-
Date of Service: June 09, 2025
Patient states her mentation has significantly improved
States she was able to get a good night sleep
States of frequent urination while being on IV fluids
Objective Data
-
Labs:
Laboratory Results
06/09/25
06:26
WBC 21.1 H
Hgb 7.8 L
Hct 24.0 L
Plt Count 321
Sodium 140
Potassium 3.7
Chloride 111 H
Carbon Dioxide 21 L
BUN 29 H
Creatinine 1.0
Glucose 58 L
Calcium 8.1 L
Vital Signs:
Vital Signs
Temp Pulse Resp BP Pulse Ox
98.4 F 88 18 112/63 98
06/09/25 11:35 06/09/25 11:35 06/09/25 11:35 06/09/25 11:35 06/09/25 11:35
I&O
06/08/25 06/09/25 06/10/25
06:59 06:59 06:59
Intake Total 480 / 480 720 / 720
Output Total 510 / 510 350 / 350
Balance -30 / -30 370 / 370
Data Reviewed
-
Total Time Spent with Patient (in minutes): 55
[2025-06-09] MEDS: OCUVITE SOFTGEL 2 CAP PO (12:51)
[2025-06-09 15:29] VITALS: BP 107/76
[2025-06-09] MEDS: STERILE WATER FOR INJECTION 10 ML IV (17:01)
[2025-06-09] MEDS: ROCEPHIN 1000 MG IV (17:01)
[2025-06-09] MEDS: HEPARIN SC (17:02)
[2025-06-09 19:56] VITALS: BP 120/65
[2025-06-09] MEDS: UROCIT-K 15 MEQ PO (20:21)
[2025-06-09 23:12] VITALS: BP 116/62
[2025-06-10] VITALS (8 sets, daily range): BP systolic 102–160; BP diastolic 58–75
[2025-06-10] MEDS: TYLENOL 650 MG PO ×2 (00:52→20:48)
[2025-06-10 01:05] LABS: Glucose - Point of Care 94 mg/dl (70-99)
[2025-06-10] MEDS: PROTONIX 40 MG PO (08:06)
[2025-06-10] MEDS: HEPARIN 5000 UNITS SC ×2 (08:06→23:00)
[2025-06-10] MEDS: UROCIT-K 15 MEQ PO ×2 (08:06→20:48)
[2025-06-10] MEDS: OCUVITE SOFTGEL 2 CAP PO (08:06)
[2025-06-10] MEDS: LIPITOR 20 MG PO (08:06)
[2025-06-10 08:47] LABS: Hematocrit 25.7 % (37.0-47.0); Hemoglobin 8.5 g/dL (12.0-16.0); Mean Corp Hgb Conc. 33.1 g/dL (33.0-37.0); Mean Corpuscular Volume 83.4 fL (81.0-99.0); Platelet Count 312 10^3/uL (130-400); Red Cell Dist. Width 15.6 % (11.5-14.5)
[2025-06-10 08:58] LABS: Blood Urea Nitrogen 21 mg/dl (7-17); Calcium 8.3 mg/dl (8.4-10.2); Carbon Dioxide 22 mmol/L (22-30); Chloride 110 mmol/L (98-107); Estimated Creatinine Clearance 41 ml/min; Glucose 99 mg/dl (70-99); Potassium 3.6 mmol/L (3.5-5.1); Sodium 140 mmol/L (135-145); eGFR 59.49
[2025-06-10 09:53] LABS: Nucleated Red Blood Cells % 0 %
[2025-06-10] MEDS: CIPRO 400 MG 200 IV ×2 (10:05→23:01)
--- NOTE | 2025-06-10 11:30 | W.PN.HOSP.TC ---
Today's Communication/Plan
-
Change antibiotics to ciprofloxacin
DC MRI patient refusing
Continue with PT eval
Monitor temperature curve
Trend WBC
Assessment / Plan
Assessment / Plan
74-year-old female presented with multi complaint including generalized weakness, malaise, unsteady feet, dizziness when she is to describe with nausea and diarrhea for the last few days, concerning for dehydration, gastroenteritis and UTI as well
as workup show acute kidney injury.
Severe Sepsis-poa
- Likely secondary to urinary tract infection E. coli
- Criteria is leukocytosis white cell count more than 18, acute kidney injury, and encephalopathy-poa
- Status post aggressive IV fluids. Tolerating p.o. intake.
- Monitor vital sign.
- Blood culture has remained negative. Urine culture susceptibility result noted.
- Patient with history of renal stone and renal bladder ultrasound with renal stones noted. CT scan was negative for any obstructive renal stone.
- Mild bump in WBC noted. Change antibiotics to ciprofloxacin. If no improvement will need ID input.
Toxic metabolic encephalopathy related to dehydration, UTI, acute kidney injury versus unclear if underlying cognitive impairment
- Hold blood pressure medication which she is on ARB and HCTZ as pressure
- Avoid nephrotoxin
- CT head age-related changes noted. Unable to tolerate MRI of the brain and stated she will get it as outpatient.
- States of a anxious due to undergoing MRI and would like to get it as outpatient. Does not want to take anxiolytic before the MRI.
Acute kidney injury:
- Likely prerenal because of the dehydration poor oral intake and diarrhea and vomiting and urinary tract infection in the setting of taking olmesartan and hydrochlorothiazide
- Monitor off fluids. Encouraged to increase oral intake.
- Creatinine down trended to 1. Renal bladder ultrasound negative for hydronephrosis.
- Avoid nephrotoxin
GERD:
- Continue PPI
Primary hypertension
- Pressure on the soft side we will hold ARB and HCTZ for now with close monitoring of the blood
- Midodrine as needed ordered. Blood pressure at 107/62
History of renal stones
- Continue with prophylactic potassium citrate. Follows with urology as outpatient.
Left ovarian cyst
Outpatient [facility] follow-up
CODE STATUS full code
DVT prophylaxis: Heparin subcu
PT recs home PT versus skilled rehab
Anticipated Discharge: > 48 hours
Subjective/Interval History
-
Date of Service: June 10, 2025
states of feeling weak
states she was symptomatic from elevated temperature overnight
States her memory is foggy at times
States of a anxious due to undergoing MRI and would like to get it as outpatient. Does not want to take anxiolytic before the MRI.
Objective Data
-
Labs:
Laboratory Results
06/10/25
07:29
WBC 25.4 H
Hgb 8.5 L
Hct 25.7 L
Plt Count 312
Sodium 140
Potassium 3.6
Chloride 110 H
Carbon Dioxide 22
BUN 21 H
Creatinine 1.0
Glucose 99
Calcium 8.3 L
Vital Signs:
Vital Signs
Temp Pulse Resp BP Pulse Ox
98.3 F 97 18 107/62 94
06/10/25 07:10 06/10/25 07:10 06/10/25 07:10 06/10/25 07:10 06/10/25 08:15
I&O
06/09/25 06/10/25 06/11/25
06:59 06:59 06:59
Intake Total 720 / 720 480 / 480
Output Total 350 / 350 800 / 800
Balance 370 / 370 -320 / -320
Physical Exam
-
General: Well Developed and No Apparent Distress
HEENT: Normocephalic, Atraumatic and Moist Mucous Membranes
Respiratory: Clear to Auscultation
Cardiac: Regular Rhythm and S1/S2; Negative Murmur, Rub or Gallop
GI: Soft, Nontender, Nondistended and Normal Bowel Sounds; Negative Organomegaly
Rectal: Deferred by Provider
Musculoskeletal: No Clubbing, No Cyanosis and No Edema
Skin: Warm; Negative Rash
Neuro: Awake, Alert, Oriented, AO x 3, No Motor Deficits and Nonfocal/Grossly Intact; Negative Tremors, Sedated, Slurred Speech or Facial Droop
Psych: Calm and Confused
Data Reviewed
-
Total Time Spent with Patient (in minutes): 55
[2025-06-10] MEDS: HEPARIN SC (15:34)
[2025-06-11 03:50] VITALS: BP 108/65
[2025-06-11 07:00] VITALS: BP 120/71
[2025-06-11 08:10] LABS: Hematocrit 25.6 % (37.0-47.0); Hemoglobin 8.5 g/dL (12.0-16.0); Mean Corp Hgb Conc. 33.2 g/dL (33.0-37.0); Mean Corpuscular Volume 82.3 fL (81.0-99.0); Nucleated Red Blood Cells % 0 %; Platelet Count 286 10^3/uL (130-400); Red Cell Dist. Width 15.9 % (11.5-14.5)
[2025-06-11 08:37] LABS: Blood Urea Nitrogen 19 mg/dl (7-17); Calcium 8.7 mg/dl (8.4-10.2); Carbon Dioxide 23 mmol/L (22-30); Chloride 109 mmol/L (98-107); Estimated Creatinine Clearance 41 ml/min; Glucose 97 mg/dl (70-99); Potassium 3.5 mmol/L (3.5-5.1); Sodium 140 mmol/L (135-145); eGFR 59.49
[2025-06-11] MEDS: LIPITOR 20 MG PO (09:01)
[2025-06-11] MEDS: OCUVITE SOFTGEL 2 CAP PO (09:01)
[2025-06-11] MEDS: PROTONIX 40 MG PO (09:01)
[2025-06-11] MEDS: CIPRO 400 MG 200 IV (09:01)
[2025-06-11] MEDS: UROCIT-K 15 MEQ PO (09:01)
[2025-06-11] MEDS: HEPARIN 5000 UNITS SC (09:02)
[2025-06-11] MEDS: TYLENOL 650 MG PO (11:16)
[2025-06-11 11:18] VITALS: BP 106/68; PULSE 100
--- NOTE | 2025-06-11 11:41 | CM ---
CM reviewed pt with attending- anticipate dc today
Discussion with PT- outpt PT recommendations
Bedside with pt, she is in agreement with outpt PT
Family will transport home
IMM verbally reviewed- copy provided
TT/attending requesting outpt script
Discharge Disposition- home with outpt PT, family transport
--- NOTE | 2025-06-11 13:05 | W.DCSUMMARY ---
Discharge Summary
Discharge Data
Date of Admission: 06/07/25
Date of Discharge: 06/11/25
-
Pending Results: No
Hospital Course
Discharging Physician : Dr Malik Paris
Disposition : Home with out patient Physical therapy
Primary care physician :Dr Aziza Moody
Principal Discharge diagnosis :
Escherichia coli urinary tract infection
Sepsis
Acute kidney injury
Generalized weakness
Toxic metabolic encephalopathy
Chronic Discharge diagnosis :
Gastroesophageal reflux disease
Essential hypertension
History of renal stones
Left ovarian cyst
Physical examination:
HEENT: No pallor, cyanosis, or jaundice. Throat clear.
NECK: Supple. No JVD.
RESPIRATORY: Lungs clear to auscultation.
CVS: S1, S2 normal. RRR. No murmur, rub or gallop.
ABDOMEN: Soft, non-tender. No distension. BS+/normal.
EXTREMITIES: No peripheral cyanosis or edema.
LAP GRINDER: AOx3. No focal deficits.
Hospital Course :
Patient is a 75-year-old female with no mentioned past medical history came to ER for new onset of generalized weakness and balance issue. Patient had few episodes of vomiting and nonbloody diarrhea at home. In evaluation patient was noted to be
septic and possible source was felt to be urinary tract infection. Patient was started on empiric antibiotic and urine and blood cultures were collected out of which urine culture reported to be positive for E coli. Patient had some associated
toxic metabolic encephalopathy which slowly improved with antibiotic therapy as well. At discharge patient was changed to Levaquin therapy for 5 more days. Patient had some prerenal kidney injury which improved with IV hydration. Patient was
evaluated by physical therapy and was appropriate for home-based physical therapy. Patient was discharged home at this point.
Important imaging findings :
None
Procedure findings :
None
Discharge Plan
-
Patient Disposition: Home with Home Care
Discharge Diagnosis/Procedures: E coli UTI, Sepsis
Condition: Fair
Diet: Regular
Activity: As tolerated
Driving Restrictions: As prior to admission
Bathing Restrictions: OK to Shower
Others Tests: Left ovarian cyst- Outpatient Bilingual [facility] Interviewer follow-up
Referrals:
Aziza Moody CRNP [Family Provider, Internal Medicine] - in one week
Prescriptions:
New
levofloxacin 750 mg tablet
750 mg PO DAILY 5 Days Qty: 5 0RF
Continued
atorvastatin 20 mg Tablet
20 mg PO DAILY
omeprazole 20 mg Tablet,Delayed Release (Dr/Ec)
20 mg PO DAILY
olmesartan-hydrochlorothiazide 20-12.5 mg Tablet
1 tab PO DAILY
PreserVision AREDS-2 capsule
2 cap PO DAILY
potassium citrate 15 mEq Tablet Extended Release
15 meq PO BID
Discharge Date and Time
Print Language: [id number]
== END 2025-06-11 14:44 | disposition home or self-care (01) | DRG 871 ==
LOC: 4 EAST ACU 17:44
PROVIDERS: Emergency Medicine; Hospitalist; Nurse Practitioner Family; Physician Assistant; ADMITTING PHYSICIAN Internal Medicine; ATTENDING PHYSICIAN Hospitalist; EMERGENCY PHYSICIAN Emergency Medicine; FAMILY PHYSICIAN Nurse Practitioner Primary Care
DX: A41.51 Sepsis due to Escherichia coli [E. coli] (principal); G92.8 Other toxic encephalopathy; N17.9 Acute kidney failure, unspecified; N39.0 Urinary tract infection, site not specified; R65.20 Severe sepsis without septic shock; E78.5 Hyperlipidemia, unspecified; E86.0 Dehydration; G89.29 Other chronic pain; I10 Essential (primary) hypertension; K21.9 Gastro-esophageal reflux disease without esophagitis; M19.90 Unspecified osteoarthritis, unspecified site; N20.0 Calculus of kidney; N83.202 Unspecified ovarian cyst, left side; R53.1 Weakness; Z79.899 Other long term (current) drug therapy; Z11.52 Encounter for screening for COVID-19
CPT/HCPCS: 70450; 71046; 76770; 80048; 80053; 81003; 81015; 82533; 82962; 83036; 83605; 83735; 84100; 84443; 84484; 85025; 85027; 87040; 87077; 87086; 87186; 87502; 87811; 93005; 96374; 97116; 97162; 99285

== ENCOUNTER → 2025-07-09 08:54 | Outpatient (REF) | payer MEDICARE, OTHER, SELFPAY ==
[2025-07-09 09:51] LABS: Hematocrit 32.8 % (37.0-47.0); Hemoglobin 10.5 g/dL (12.0-16.0); Mean Corp Hgb Conc. 32.0 g/dL (33.0-37.0); Mean Corpuscular Volume 88.9 fL (81.0-99.0); Nucleated Red Blood Cells % 0 %; Platelet Count 290 10^3/uL (130-400); Red Cell Dist. Width 16.6 % (11.5-14.5)
[2025-07-09 11:21] LABS: ALT (SGPT) 16 U/L (0-35); AST (SGOT) 20 U/L (14-36); Albumin 4.1 g/dl (3.5-5.0); Alkaline Phosphatase 82 U/L (38-126); Blood Urea Nitrogen 36 mg/dl (7-17); Calcium 9.4 mg/dl (8.4-10.2); Carbon Dioxide 29 mmol/L (22-30); Chloride 107 mmol/L (98-107); Glucose 92 mg/dl (70-99); Iron 81 ug/dl (37-170); Potassium 4.1 mmol/L (3.5-5.1); Sodium 141 mmol/L (135-145); Total Protein 7.4 g/dl (6.3-8.2); eGFR 53.06
[2025-07-09 11:31] LABS: Total Iron Binding Capacity 301 ug/dl (265-497)
[2025-07-09 11:50] LABS: Ferritin 76.1 ng/ml (11.1-264.0)
== END ==
LOC: REG 08:54
PROVIDERS: ATTENDING PHYSICIAN Nurse Practitioner Primary Care
DX: D64.9 Anemia, unspecified (principal); Z79.899 Other long term (current) drug therapy; R53.83 Other fatigue
CPT/HCPCS: 36415; 80053; 82728; 83540; 83550; 84443; 85025

== ENCOUNTER → 2025-07-20 09:06 | Outpatient (REF) | payer MEDICARE, OTHER, SELFPAY ==
[2025-07-20 11:01] LABS: Hematocrit 34.0 % (37.0-47.0); Hemoglobin 10.8 g/dL (12.0-16.0); Mean Corp Hgb Conc. 31.8 g/dL (33.0-37.0); Mean Corpuscular Volume 88.8 fL (81.0-99.0); Nucleated Red Blood Cells % 0 %; Platelet Count 324 10^3/uL (130-400); Red Cell Dist. Width 16.8 % (11.5-14.5)
[2025-07-20 11:22] LABS: ALT (SGPT) 18 U/L (0-35); AST (SGOT) 21 U/L (14-36); Albumin 4.4 g/dl (3.5-5.0); Alkaline Phosphatase 90 U/L (38-126); Blood Urea Nitrogen 26 mg/dl (7-17); Calcium 9.7 mg/dl (8.4-10.2); Carbon Dioxide 29 mmol/L (22-30); Chloride 106 mmol/L (98-107); Glucose 94 mg/dl (70-99); HDL Cholesterol 54 mg/dl; LDL Cholesterol, Calculated 54 mg/dl; Potassium 4.2 mmol/L (3.5-5.1); Sodium 138 mmol/L (135-145); Total Protein 7.8 g/dl (6.3-8.2); Very Low Density Lipoprotein 31 mg/dl (0-30); eGFR 59.49
[2025-07-20 11:38] LABS: Vitamin D, 25-OH*** 42.3 ng/mL (30-80)
== END ==
LOC: REG 09:06
PROVIDERS: ATTENDING PHYSICIAN Nurse Practitioner Primary Care
DX: E78.2 Mixed hyperlipidemia (principal); I10 Essential (primary) hypertension; K21.9 Gastro-esophageal reflux disease without esophagitis
CPT/HCPCS: 36415; 80053; 80061; 82306; 84443; 85025

== ENCOUNTER → 2025-08-01 13:11 | Outpatient (REF) | payer MEDICARE, OTHER, SELFPAY | LOC: HWRAD 13:11 | PROVIDERS: ATTENDING PHYSICIAN Nurse Practitioner Primary Care | DX: N83.292 Other ovarian cyst, left side (principal) | CPT/HCPCS: 76830; 76856 ==

== ENCOUNTER → 2025-08-04 10:51 | Outpatient (REF) | payer MEDICARE, OTHER, SELFPAY | LOC: MRI 3T 10:51 | PROVIDERS: ATTENDING PHYSICIAN Nurse Practitioner Primary Care | DX: K11.7 Disturbances of salivary secretion (principal); Z86.69 Personal history of other diseases of the nervous system and sense organs | CPT/HCPCS: 70553; A9575 ==

== ENCOUNTER → 2025-08-07 12:26 | Outpatient (REF) | payer MEDICARE, OTHER, SELFPAY | LOC: WDC 12:26 | PROVIDERS: ATTENDING PHYSICIAN Nurse Practitioner Primary Care | DX: Z12.31 Encounter for screening mammogram for malignant neoplasm of breast (principal) | CPT/HCPCS: 77063; 77067 ==